=== PATIENT | male | born 1955 | race Two or more races ===

== ENCOUNTER 2019-09-20 18:01 | Emergency (ER) | payer OTHER ==
[~2019-09-20] VITALS: Ht 167.6 cm; Wt 93.4 kg
[~2019-09-20 18:01] MED LIST: ATACAND16 MG PO
[2019-09-20] MEDS ORDERED: TRIBENZOR 20-51 EACH (18:33)
[2019-09-20] MEDS ORDERED: ULORIC40 MG (18:33)
[2019-09-20] MEDS ORDERED: PEPCID AC20 MG (18:33)
[2019-09-20] MEDS ORDERED: ADCIRCA20 MG (18:34)
== END 2019-09-20 22:07 | disposition home or self-care (01) ==
LOC: ER 18:01
DX: R20.2 Paresthesia of skin (principal); F06.4 Anxiety disorder due to known physiological condition

== ENCOUNTER → 2019-09-28 | Emergency (ER) | payer OTHER ==
[~2019-09-28] VITALS: Ht 167.6 cm; Wt 93.4 kg
[~2019-09-28] MED LIST changes: +ADCIRCA20 MG; +PEPCID AC20 MG; +TRIBENZOR 20-51 EACH; +ULORIC40 MG
== END | disposition home or self-care (01) ==
LOC: ER 18:07
DX: J06.9 Acute upper respiratory infection, unspecified (principal); R06.02 Shortness of breath

== ENCOUNTER 2019-09-30 17:22 | Emergency (ER) | payer OTHER ==
[~2019-09-30] VITALS: Ht 170.2 cm; Wt 88.5 kg
== END 2019-09-30 22:40 | disposition home or self-care (01) ==
LOC: ER 17:22
DX: G47.59 Other parasomnia (principal)